=== PATIENT | male | born 1950 | race Caucasian/White ===

== ENCOUNTER 2018-10-26 11:10 | Emergency (ER) | payer MEDICARE ==
[2018-10-26] MEDS ORDERED: Sodium Chloride 0.9% 10 ML Syringe FLUSH PRN (11:17)
[2018-10-26] MEDS ORDERED: Sodium Chloride 0.9% 2.5 ML Syringe FLUSH PRN (11:17)
[2018-10-26] MEDS ORDERED: Acetaminophen 500 MG Tab PO ONE (11:18)
--- NOTE | 2018-10-26 11:23 | EDM.PDOC ---
ED HPI GENERAL MEDICAL PROBLEM - General Chief Complaint: Trauma Stated Complaint: HIT HEAD Time Seen by Provider: 10/26/18 11:12 - History of Present Illness INITIAL COMMENTS - FREE TEXT/NARRATIVE: HISTORY AND PHYSICAL: History of present illness: The patient is a 68-year-old male with a history of 4 strokes for which she takes chronic Coumadin and has a history cousin of that of short-term memory loss and balance issues who presents after slipping and falling in the shower prior to arrival. The patient is also had a cardiac stent. He says that he was having a complete normal morning and he was in the shower starting to put soap on and he turned quickly to get something on the shower bench and lost his balance and fell striking his right head. He had a brief period of loss of consciousness and complains of right headache. He also complains of neck pain and posterior right shoulder pain. He has no midline back pain no chest pain or chest wall pain no abdominal pain no nausea or vomiting and no lower extremity complaints. He says that overall he feels sore everywhere and achy. He says that prior to these events he was not dizzy or lightheaded. He has no chest pain or palpitations. He ate and drink normally prior to these events. This case was called as a trauma alert due to the patient hitting his head and being on Coumadin The patient also tells me later that he has a history of A. fib and other reason why he is on the Coumadin Review of systems: As per history of present illness and below otherwise all systems reviewed and negative. Past medical history: As per history of present illness and as reviewed below otherwise noncontributory. Surgical history: As per history of present illness and as reviewed below otherwise noncontributory. Social history: No reported history of drug or alcohol abuse. Family history: As per history of present illness and as reviewed below otherwise noncontributory. Physical exam: General: Well-developed well-nourished man who is nontoxic and well ambulated in from triage without issue. Vital signs are noted by me. After my arrival into the room for evaluation a c-collar was quickly placed on by nursing. HEENT: Atraumatic except for small area of soft tissue swelling on the right parietal scalp area without any skin break abrasion or laceration, there is no scalp defect or deformity in this region on the right, there is no facial trauma or soft tissue swelling seen, EOMs are intact,, normocephalic, pupils reactive, negative for conjunctival pallor or scleral icterus, mucous membranes moist, throat clear, neck supple, nontender, trachea midline. There is diffuse cervical spine discomfort on palpation including the midline and paraspinal areas bilaterally without any step-offs defects or deformities. Lungs: Clear to auscultation, breath sounds equal bilaterally, chest nontender. No chest wall defects tenderness or deformities and no crepitus Heart: S1S2, regular rate but irregular rhythm, negative for clicks, rubs, or JVD. Abdomen: Soft, nondistended, nontender. Negative for masses or hepatosplenomegaly. NABS Pelvis: Stable nontender. Genitourinary: Deferred. Rectal: Deferred. Extremities: Atraumatic without any palpable defects or deformities and there is full range of motion. On palpation of the right posterior shoulder girdle and scapular area there is tenderness without defects deformities ecchymosis soft tissue swelling or abrasion., negative for cords or calf pain. Neurovascular unremarkable. Neuro: Awake, alert, oriented. Cranial nerves II through XII unremarkable. Cerebellum unremarkable. Motor and sensory unremarkable throughout. Exam nonfocal. Back: There are no midline step-offs in his defects of the thoracic or lumbar spine no posterior rib tenderness Diagnostics: EKG CBC CMP INR right shoulder x-ray, CT scan of the head and C-spine Therapeutics: Tylenol IV O2 monitor Lovenox This case was called as a trauma alert due to Coumadin use and head trauma. I will involve Dr. Moore our trauma surgeon as needed and indicated pending my testing results The radiology results were discussed with Dr. Lynne as the patient was unaware that he had a scapular fracture. He says that it is a healing scapular fracture but it is a significant injury that is not acute but he says that there may be an acute on chronic component to this as there is some bony fragments. When I discussed this with the patient and at bedside he does say that he had a fall at home 1-2 weeks ago where he impacted a hinge directly on the scapular area and was seen in the local ED and was told that everything was okay. He has had a new in this region since that time at this point I will discuss the case with Dr. Moore as I am not sure if we need to further evaluate the scapula and as his INR is only 1.1 we need to address his Coumadin 1245: Discussed with Dr. Moore who feels that if there is a potential for an acute component and the patient was unaware of this injury that she would want a CT scan of the chest. Pending that result she would want orthopedics to be consult and as we do not have ortho on-call I would discuss this case with the ortho physician emergency spill response technician at [facility] in [place]. She says that from a trauma perspective if the CT of the chest is negative we can adjust his Coumadin regardless of him hitting his head today. And she is also comfortable with a dose of Lovenox 1405: case was discussed with orthopedic surgery at [facility], Dr. Hayes. He just wants pain management and no sling or any other mobilization and as the patient is returning to [place] he can follow up there 1410: Dr. Moore was made aware of all testing results and agrees that we can't give him a dose of Lovenox here and up his Coumadin and he plans on returning to [place] in the next 24-48 hours. I discussed all testing results with the patient and at bedside and they are aware of the Lovenox and we will increase his Coumadin to 7.5 mg from 5 mg for the next 2 doses and then he needs to have his level rechecked by his provider at home. I will give him some [place] for pain management. Impression: Fall with closed head injury and Coumadin use, subtherapeutic Coumadin level with history of A. fib and CVA; right shoulder pain with history of healing scapular fracture Definitive disposition and diagnosis as appropriate pending reevaluation and review of above. bck of head Pain Score (Numeric/FACES): 10 - Related Data Allergies Allergy/AdvReac Type Severity Reaction Status Date / Time duloxetine [From Cymbalta] Allergy Syncope Verified 10/26/18 11:19 pregabalin [From Lyrica] Allergy Syncope Verified 10/26/18 11:19 Home Meds: Home Meds Albuterol [Proventil HFA] 2 puff DAILY PRN 10/26/18 [History] Aspirin [Children's Aspirin] 81 mg PO DAILY 10/26/18 [History] Diltiazem HCl [Cartia Xt] 360 mg PO DAILY 10/26/18 [History] Docusate Sodium 100 mg PO DAILY PRN 10/26/18 [History] Escitalopram [Lexapro] 30 mg PO DAILY 10/26/18 [History] Finasteride [Proscar] 5 mg PO DAILY 10/26/18 [History] Fluticasone/Vilanterol [Breo Ellipta 200-25 MCG Inhalation Kit] 1 puff DAILY 06/15 [History] Glimepiride 1 mg PO DAILY 10/26/18 [History] Insulin Degludec [Tresiba] 20 unit BEDTIME 10/26/18 [History] Insulin Lispro [HumaLOG] 10 units SQ QID PRN 10/26/18 [History] Loratadine 10 mg PO DAILY PRN 10/26/18 [History] MV-Mn/Iron/FA/Herbal Cmplx#190 [Vitamin D3 Complete Caplet] 125 mg PO TID [History] Montelukast [Singulair] 10 mg PO DAILY 10/26/18 [History] Nitroglycerin 0.4 mg SL TID PRN 10/26/18 [History] Nortriptyline HCl [Pamelor] 25 mg PO BEDTIME 10/26/18 [History] Omeprazole Magnesium [Prilosec Otc] 40 mg PO DAILY 10/26/18 [History] Rosuvastatin Calcium [Crestor] 40 mg PO BEDTIME 10/26/18 [History] Tamsulosin HCl [Flomax] 0.4 mg PO DAILY 10/26/18 [History] Warfarin [Coumadin] 5 mg PO BEDTIME 10/26/18 [History] lamoTRIgine [Lamictal] 100 mg PO BEDTIME 10/26/18 [History] metFORMIN HCl [Glucophage] 1,000 mg PO BID 10/26/18 [History] traMADol [Ultram] 50 mg PO Q12HR 10/26/18 [History] Review of Systems - Review of Systems Review Of Systems: ROS reveals no pertinent complaints other than HPI. ED EXAM, GENERAL - Physical Exam Exam: See Below (See dictation) Course - Vital Signs Last Recorded V/S: Last Vital Signs Temp 36.3 C 10/26/18 11:19 Pulse 110 H 10/26/18 11:19 Resp 18 10/26/18 11:19 BP 180/100 H 10/26/18 11:19 Pulse Ox 96 10/26/18 11:19 - Orders/Labs/Meds Orders: Active Orders 24 hr Category Date Time Status Patient Status [ADT] Stat ADT 10/26/18 11:54 Active Cardiac Monitoring [RC] . DIRECTED Care 10/26/18 11:17 Active EKG Documentation Completion [RC] STAT Care 10/26/18 11:17 Active Oxygen Therapy, ED [RC] ASDIRECTED Care 10/26/18 11:17 Active Pulse Oximetry [RC] ASDIRECTED Care 10/26/18 11:17 Active Sodium Chloride 0.9% [Saline Flush] Med 10/26/18 11:17 Active 10 ml FLUSH ASDIRECTED PRN Sodium Chloride 0.9% [Saline Flush] Med 10/26/18 11:17 Active 2.5 ml FLUSH ASDIRECTED PRN Saline Lock Insert [OM.PC] Stat Oth 10/26/18 11:17 Ordered Medication Orders Sodium Chloride (Saline Flush) 10 ml FLUSH ASDIRECTED PRN PRN Reason: Keep Vein Open Sodium Chloride (Saline Flush) 2.5 ml FLUSH ASDIRECTED PRN PRN Reason: Keep Vein Open Labs: Laboratory Tests 10/26/18 10/26/18 10/26/18 Range/Units 11:50 11:50 11:50 WBC 10.38 (4.0-11.0) K/uL RBC 4.97 (4.50-5.90) M/uL Hgb 14.0 (13.0-17.0) g/dL Hct 41.7 (38.0-50.0) % MCV 83.9 (80.0-98.0) fL MCH 28.2 (27.0-32.0) pg MCHC 33.6 (31.0-37.0) g/dL RDW Std Deviation 46.7 (28.0-62.0) fl RDW Coeff of Fletcher 15 (11.0-15.0) % Plt Count 145 L (150-400) K/uL MPV 9.20 (7.40-12.00) fL Add Manual Diff YES Neutrophils % (Manual) 72 (48.0-80.0) % Lymphocytes % (Manual) 22 (16.0-40.0) % Monocytes % (Manual) 3 (0.0-15.0) % Eosinophils % (Manual) 1 (0.0-7.0) % Basophils % (Manual) 2 H (0.0-1.5) % Nucleated RBC % 0.0 /100WBC Absolute Seg Neuts 7.5 H (1.4-5.7) Lymphocytes # (Manual) 2.3 (0.6-2.4) Monocytes # (Manual) 0.3 (0.0-0.8) Eosinophils # (Manual) 0.1 (0.0-0.7) Basophils # (Manual) 0.2 H (0.0-0.1) Nucleated RBCs # 0 K/uL INR 1.10 Sodium 137 (136-148) mmol/L Potassium 4.2 (3.5-5.1) mmol/L Chloride 103 (98-107) mmol/L Carbon Dioxide 22.9 (21.0-32.0) mmol/L BUN 14 (7.0-18.0) mg/dL Creatinine 0.9 (0.8-1.3) mg/dL Est Cr Clr Drug Dosing 78.56 mL/min Estimated GFR (MDRD) > 60.0 ml/min Glucose 291 H (74-106) mg/dL Calcium 8.6 (8.5-10.1) mg/dL Total Bilirubin 0.9 (0.2-1.0) mg/dL AST 21 (15-37) IU/L ALT 61 (14-63) IU/L Alkaline Phosphatase 123 H (46-116) U/L Total Protein 6.7 (6.4-8.2) g/dL Albumin 3.4 (3.4-5.0) g/dL Globulin 3.3 (2.6-4.0) g/dL Albumin/Globulin Ratio 1.0 (0.9-1.6) Meds: Medications Generic Name Dose Route Start Last Admin Trade Name Freq PRN Reason Stop Dose Admin Sodium Chloride 10 ml 10/26/18 11:17 Saline Flush FLUSH ASDIRECTED PRN Keep Vein Open Sodium Chloride 2.5 ml 10/26/18 11:17 Saline Flush FLUSH ASDIRECTED PRN Keep Vein Open Discontinued Medications Generic Name Dose Route Start Last Admin Trade Name Freq PRN Reason Stop Dose Admin Acetaminophen 1,000 mg 10/26/18 11:18 10/26/18 11:58 Tylenol Extra Strength PO 10/26/18 11:19 1,000 mg ONETIME ONE Administration Enoxaparin Sodium 80 mg 10/26/18 14:20 Lovenox SUBCUT 10/26/18 14:21 ONETIME ONE Iopamidol 75 ml 10/26/18 13:26 10/26/18 13:27 Isovue Multipack-370 (76%) IVPUSH 10/26/18 13:27 75 ml ONETIME STA Administration Morphine Sulfate 2 mg 10/26/18 12:44 10/26/18 12:57 Morphine IVPUSH 10/26/18 12:45 2 mg ONETIME ONE Administration Departure - Departure Time of Disposition: 14:20 Disposition: Home, Self-Care 01 Condition: Good Clinical Impression: Anticoagulated on Coumadin, Subtherapeutic international normalized ratio (INR) , Pain of right scapula Closed head injury Qualifiers: Encounter type: initial encounter Qualified Code(s): S09.90XA - Unspecified injury of head, initial encounter Fracture of scapula with routine healing Qualifiers: Scapula location: unspecified part of scapula Fracture type: closed Laterality : right Qualified Code(s): S42.101D - Fracture of unspecified part of scapula, right shoulder, subsequent encounter for fracture with routine healing - Discharge Information Referrals: PCP,None [Primary Care Provider] - Forms: ED Department Discharge Additional Instructions: The following information is given to patients seen in the emergency department who are being discharged to home. This information is to outline your options for follow-up care. We provide all patients seen in our emergency department with a follow-up referral. The need for follow-up, as well as the timing and circumstances, are variable depending upon the specifics of your emergency department visit. If you don't have a primary care physician on staff, we will provide you with a referral. We always advise you to contact your personal physician following an emergency department visit to inform them of the circumstance of the visit and for follow-up with them and/or the need for any referrals to a consulting specialist. The emergency department will also refer you to a specialist when appropriate. This referral assures that you have the opportunity for followup care with a specialist. All of these measure are taken in an effort to provide you with optimal care, which includes your followup. Under all circumstances we always encourage you to contact your private physician who remains a resource for coordinating your care. When calling for followup care, please make the office aware that this follow-up is from your recent emergency room visit. If for any reason you are refused follow-up, please contact the [facility] emergency department at and ask to speak to the emergency department charge nurse. [facility] Specialty Care--Orthopedic clinic Professional Building [address] [place] [address] [address] [place] [address] [facility] Primary care- Internal Medicine and Family [facility] [address] [place] [id number] Please adjust your Coumadin dosing as we discussed taking 7.5 mg for the next 2 doses and then returning to your 5 mg a day. Please connect with your provider at home in [place] to have a repeat INR performed the end of this week to recheck your level. Use ice to areas of soreness for the next 24 hours and then switch to heat as you may have sore areas due to the fall. Only use ice on her scalp contusion. Use [id number] Tylenol or ibuprofen for pain management or take the stronger [place] for your shoulder pain. Try to do all activities more slowly in light of your balance issues. Return to ER as needed and as discussed. You choose to stay in the area please connect with our clinic provider is using resources given to above - My Orders Last 24 Hours: My Active Orders 10/26/18 11:17 Cardiac Monitoring [RC] . DIRECTED EKG Documentation Completion [RC] STAT Oxygen Therapy, ED [RC] ASDIRECTED Pulse Oximetry [RC] ASDIRECTED Sodium Chloride 0.9% [Saline Flush] 10 ml FLUSH ASDIRECTED PRN Sodium Chloride 0.9% [Saline Flush] 2.5 ml FLUSH ASDIRECTED PRN Saline Lock Insert [OM.PC] Stat 10/26/18 11:54 Patient Status [ADT] Stat - Assessment/Plan Last 24 Hours: My Active Orders 10/26/18 11:17 Cardiac Monitoring [RC] . DIRECTED EKG Documentation Completion [RC] STAT Oxygen Therapy, ED [RC] ASDIRECTED Pulse Oximetry [RC] ASDIRECTED Sodium Chloride 0.9% [Saline Flush] 10 ml FLUSH ASDIRECTED PRN Sodium Chloride 0.9% [Saline Flush] 2.5 ml FLUSH ASDIRECTED PRN Saline Lock Insert [OM.PC] Stat 10/26/18 11:54 Patient Status [ADT] Stat
--- NOTE | 2018-10-26 11:50 | CR ---
EXAMINATION: Right shoulder HISTORY: Pain COMPARISON: None TECHNIQUE: 3 views FINDINGS/IMPRESSION: Several lucencies are noted projecting within the region of the scapular spine, however these may be artifactual due to notable osteopenia. Otherwise the remaining osseous structures and joint spaces appear preserved. Old right-sided rib fractures noted.
[2018-10-26 12:22] LABS: CHLORIDE,CL 103 mmol/L (98-107); SODIUM,NA 137 mmol/L (136-148)
--- NOTE | 2018-10-26 12:25 | CT ---
EXAMINATION: CT cervical spine without contrast HISTORY: Pain COMPARISON: None TECHNIQUE: Axial CT imaging obtained through the cervical spine without contrast. Coronal and sagittal reconstructions obtained. FINDINGS: There is straightening of the normal cervical lordosis. Vertebral body heights appear maintained. Anterior and interbody fusion hardware noted from C4 to C7 with interbody osseous bridging. There is no acute osseous abnormality or fracture noted within the cervical spine. Osseous structures appear ostial seen. Prevertebral soft tissues are normal. There is a nondisplaced fracture of the right scapula extending vertically from the scapular blade into the spine. There is however callus formation noted. Mild joint space narrowing within the glenohumeral joint. Lung apices are clear. IMPRESSION: 1. Postsurgical changes noted within the cervical spine without acute cervical abnormality. 2. Healing right scapular fracture demonstrated. A few areas demonstrate mildly increased separation of fragments and a acute on chronic injury is not excluded.
--- NOTE | 2018-10-26 12:25 | CT ---
EXAMINATION: Non contrast CT head. Coronal and sagittal reformats. HISTORY: Pain FINDINGS: No evidence of intra or extra axial hemorrhage, mass, midline shift, hydrocephalus or edema. Mild periventricular and subcortical white matter hypodensities noted. Tiny area of cortical encephalomalacia within the left frontal lobe posteriorly. No hypoattenuation changes in the major vascular territories to suggest acute infarct. No abnormal intracranial calcifications are detected. No evidence of substantial vascular calcifications. Paranasal sinuses and mastoid air cells are well aerated without substantial findings. Pituitary fossa appears unremarkable. Calvarium is intact. No evidence of skull fracture. IMPRESSION: 1. No acute intracranial findings. 2. Mild to moderate small vessel ischemic changes.
[2018-10-26] MEDS ORDERED: Morphine 2 MG/ML Syringe IVPUSH ONE (12:44)
[2018-10-26] MEDS ORDERED: Iopamidol 755 MG/ML 500 ML Multipack Bottle IVPUSH STA (13:26)
--- NOTE | 2018-10-26 13:54 | CT ---
EXAMINATION: CT chest with contrast HISTORY: Evaluate scapular fracture COMPARISON: None TECHNIQUE: Axial CT imaging obtained through the chest following the administration of 75 mL of Isovue-370 in the right hand. Coronal and sagittal reconstructions obtained. FINDINGS: Again noted is a right scapular fracture as mentioned on the recent cervical spine CT. There are underlying nondisplaced healed rib fractures. The heart is normal in size without pericardial effusion. Thoracic aorta is normal in caliber. Main pulmonary arteries appear patent. Moderate coronary artery calcifications. Median sternotomy wires are noted. No mediastinal or hilar lymphadenopathy. Mild pulmonary scarring near the previous rib fractures. Splenic granulomata. Visualized images of the upper abdomen appear otherwise unremarkable. Spinal stimulator device noted. IMPRESSION: 1. Scapular fracture as previously described. 2. Underlying rib fractures are noted, these appear healed. 3. Otherwise no acute cardiopulmonary findings. 4. Coronary artery calcifications.
[2018-10-26] MEDS ORDERED: Enoxaparin 100 MG/1 ML Syringe SUBCUT ONE (14:20)
== END 2018-10-26 14:45 | disposition home or self-care (01) ==
LOC: MW.ED 11:10 → EDBD 11:10 → MW.ED 14:45
DX: S06.9X9A Unspecified intracranial injury with loss of consciousness of unspecified duration, initial encounter (principal); S42.101D Fracture of unspecified part of scapula, right shoulder, subsequent encounter for fracture with routine healing; R79.1 Abnormal coagulation profile; I48.91 Unspecified atrial fibrillation; Z88.8 Allergy status to other drugs, medicaments and biological substances; Z79.899 Other long term (current) drug therapy; Z79.82 Long term (current) use of aspirin; Z79.01 Long term (current) use of anticoagulants; Z86.73 Personal history of transient ischemic attack (TIA), and cerebral infarction without residual deficits; W18.2XXA Fall in (into) shower or empty bathtub, initial encounter; X58.XXXD Exposure to other specified factors, subsequent encounter; Y92.002 Bathroom of unspecified non-institutional (private) residence as the place of occurrence of the external cause
CPT/HCPCS: 36415; 70450; 71260; 72125; 73030; 80053; 85025; 85610; 93005; 96372; 96374; 99284; A9270; J1650; J2270; Q9967